=== PATIENT | male | born 1995 ===

== ENCOUNTER 2016-10-03 05:21 | Emergency (ER) | payer BC, OTHER ==
[2016-10-03 05:36] VITALS: O2SAT 100
--- NOTE | 2016-10-03 05:36 | ED PDOC ---
HPI: Wound Care - HPI Time Seen by Provider: 10/03/16 05:31 Chief Complaint (Nursing): Abnormal Skin Integrity Chief Complaint (Provider): Abnormal Skin Integrity History Per: Patient Exam Limitations: no limitations Onset/Duration Of Symptoms: Mins Location Of Injury: Right: Hand, Anterior: Hand Severity: Mild Additional Complaint(s): 21 y/o male patient presenting to the ED with right middle finger cut. Patient states he cut finger on a piece of glass. Patient denies any other complaints or symptoms. Patient reports having his tetanus shot. Past Medical History Reviewed: Historical Data, Nursing Documentation, Vital Signs - Medical History PMH: No Chronic Diseases - Family History Family History: States: Unknown Family Hx - Allergies Allergies/Adverse Reactions: Allergies Allergy/AdvReac Type Severity Reaction Status Date / Time No Known Allergies Allergy Verified 12/04/15 02:42 Review of Systems ROS Statement: Except As Marked, All Systems Reviewed And Found Negative Musculoskeletal: Positive for: Hand Pain ((+)Cut right middle finger on piece of glass) Physical Exam - Reviewed Nursing Documentation Reviewed: Yes Vital Signs Reviewed: Yes - Physical Exam Appears: Positive for: Non-toxic, No Acute Distress Skin: Positive for: Normal Color, Warm, Dry Extremity: Positive for: Normal ROM, Other ((+)1MM Abrasion to the right middle finger (-)Foreign body. ) - ECG O2 Sat by Pulse Oximetry: 100 (RA) Pulse Ox Interpretation: Normal Disposition - Clinical Impression Clinical Impression: Finger abrasion - Patient ED Disposition Is Patient to be Admitted: No - Disposition Referrals: [facility] [Outside] Disposition Time: 05:31 Condition: STABLE Instructions: Abrasion (ED)
[2016-10-03 05:44] VITALS: BP 138/80; PULSE 66; RESP 16; TEMP 98.3
== END 2016-10-03 06:37 | disposition home or self-care (01) ==
LOC: H.ER 05:21
DX: S61.212A Laceration without foreign body of right middle finger without damage to nail, initial encounter (principal); W25.XXXA Contact with sharp glass, initial encounter; Y92.89 Other specified places as the place of occurrence of the external cause

== ENCOUNTER 2017-04-17 05:28 | Emergency (ER) | payer OTHER, BC ==
[2017-04-17 05:48] VITALS: BMI 28.1
[2017-04-17 05:51] VITALS: BP 118/63; PULSE 73; TEMP 98.8; O2SAT 98
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
[2017-04-17 06:33] VITALS: RESP 16
== END 2017-04-17 06:49 | disposition home or self-care (01) ==
LOC: H.ER 05:28
DX: J70.5 Respiratory conditions due to smoke inhalation (principal)

== ENCOUNTER 2017-08-13 07:16 | Emergency (ER) | payer OTHER, BC ==
[2017-08-13 07:34] VITALS: BMI 28.8
[2017-08-13] MEDS ORDERED: Povidone Iodine Oint 10% Foilpak UD ONE (08:12)
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
[2017-08-13 08:48] VITALS: BP 126/67; PULSE 80; RESP 18; TEMP 97.8; O2SAT 99
== END 2017-08-13 08:47 | disposition home or self-care (01) ==
LOC: H.ER 07:16
DX: S60.412A Abrasion of right middle finger, initial encounter (principal); Y99.0 Civilian activity done for income or pay

== ENCOUNTER 2017-11-20 05:10 | Emergency (ER) | payer OTHER, BC ==
[2017-11-20 05:10] VITALS: BMI 28.8
[2017-11-20 05:17] VITALS: BP 112/63; PULSE 92; RESP 16
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
[2017-11-20 06:41] VITALS: TEMP 98.1
--- NOTE | 2017-11-20 07:28 | ED PDOC ---
- ECG O2 Sat by Pulse Oximetry: 97 (RA) Pulse Ox Interpretation: Normal Medical Decision Making Medical Decision Making: Time: 714 -- Patient endorsed to me by Dr. Last, pending XR results. Scribe Attestation: Documented by [place] Segura acting as a scribe for Jairo Sanderson MD. Provider Scribe Attestation: All medical record entries made by the Scribe were at my direction and personally dictated by me. I have reviewed the chart and agree that the record accurately reflects my personal performance of the history, physical exam, medical decision making, and the department course for this patient. I have also personally directed, reviewed, and agree with the discharge instructions and disposition. Disposition - Clinical Impression Clinical Impression: Elbow contusion - POA Present On Arrival: None - Disposition Referrals: Oliver Larry III, MD [Staff Provider] - Disposition: Routine/Home Disposition Time: 07:42 Condition: FAIR Prescriptions: Naproxen [Naprosyn] 500 mg PO Q12H #20 tab Instructions: Contusion (DC) Forms: [facility] (Burmese)
--- NOTE | 2017-11-20 08:09 | RAD ---
Date of service: 11/20/2017 PROCEDURE: Radiographs of the right elbow. HISTORY: elbow injury COMPARISON: No prior. FINDINGS: BONES: Three views of the right elbow were performed for pain. No fracture is seen. No lytic process is noted. JOINTS: Normal. No osteoarthritis. SOFT TISSUES: Normal. JOINT EFFUSION: None. OTHER FINDINGS: None. IMPRESSION: Unremarkable radiographs of the right elbow.
[2017-11-20 08:20] VITALS: O2SAT 100
== END 2017-11-20 08:19 | disposition home or self-care (01) ==
LOC: H.ER 05:10
DX: S50.01XA Contusion of right elbow, initial encounter (principal); Y09 Assault by unspecified means

== ENCOUNTER 2018-04-17 02:58 | Emergency (ER) | payer OTHER, BC ==
[2018-04-17 02:59] VITALS: BMI 28.8
[2018-04-17 03:02] VITALS: RESP 16; O2SAT 98
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
[2018-04-17 04:33] VITALS: BP 124/70; PULSE 86; TEMP 99.2
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
== END 2018-04-17 04:30 | disposition home or self-care (01) ==
LOC: H.ER 02:58
DX: S80.12XA Contusion of left lower leg, initial encounter (principal); M54.5 Low back pain; X58.XXXA Exposure to other specified factors, initial encounter; Y99.0 Civilian activity done for income or pay